=== PATIENT | male | born 1990 | race Hispanic/Latino ===

== ENCOUNTER 2018-01-02 02:37 | Emergency (ER) | payer SELFPAY ==
[2018-01-02 02:54] VITALS: RESP 18
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
[2018-01-02 03:49] VITALS: BP 141/73; PULSE 108; TEMP 98.2
[2018-01-02 03:50] VITALS: O2SAT 100
== END 2018-01-02 03:45 | disposition left against medical advice (07) ==
LOC: H.ER 02:37
DX: S09.90XA Unspecified injury of head, initial encounter (principal); Y04.0XXA Assault by unarmed brawl or fight, initial encounter; Y92.89 Other specified places as the place of occurrence of the external cause